=== PATIENT | male | born 1965 | race Two or more races ===

== ENCOUNTER 2018-03-20 08:39 | Emergency (ER) | payer OTHER ==
[~2018-03-20] VITALS: Ht 160 cm; Wt 67.9 kg
[2018-03-20 10:52] VITALS: BP 123/81
== END 2018-03-20 11:55 | disposition home or self-care (01) ==
LOC: ED 10:27
DX: S05.01XA Injury of conjunctiva and corneal abrasion without foreign body, right eye, initial encounter (principal); I10 Essential (primary) hypertension; E78.00 Pure hypercholesterolemia, unspecified; W20.8XXA Other cause of strike by thrown, projected or falling object, initial encounter; Y93.89 Activity, other specified; Y92.89 Other specified places as the place of occurrence of the external cause; Y99.8 Other external cause status
CPT/HCPCS: 99283